=== PATIENT | female | born 1970 | race Caucasian/White ===

== ENCOUNTER 2019-05-31 10:55 | Emergency (ER) | payer OTHER ==
[2019-05-31 11:01] VITALS: BP 126/76; PULSE 89; TEMP 98.1; BMI 34.9
--- NOTE | 2019-05-31 11:36 | PDOC ---
History of Present Illness - General Chief Complaint: Pain Stated Complaint: PAIN Time Seen by Provider: 05/31/19 11:24 History Source: Patient Exam Limitations: Clinical Condition - History of Present Illness Initial Comments: 05/31/19 11:32 Patient with history of diabetes on metformin present with complaint of one month history of intermittent pain to dorsal aspect of right foot which has been persistent since yesterday with pain radiating to right calf muscle since yesterday. Patient reported taking Motrin for pain without improvement. Patient reported increased pain to right foot with ambulation. Denies numbness or tingling sensation. Denies injury or trauma to foot or leg. Denies any other symptoms Timing/Duration: other (1 month) Past History - Past Medical History Allergies/Adverse Reactions: Allergies Allergy/AdvReac Type Severity Reaction Status Date / Time No Known Allergies Allergy Verified 05/31/19 11:01 Home Medications: Ambulatory Orders Metformin HCl [Glucophage] 1,000 mg PO DAILY 05/31/19 Methocarbamol [Robaxin -] 500 mg PO BID #14 tablet 05/31/19 Naproxen 500 mg PO BID PRN #20 tablet 05/31/19 COPD: No - Suicide/Smoking/Psychosocial Hx Smoking History: Never smoked Information on smoking cessation initiated: No Hx Alcohol Use: No Drug/Substance Use Hx: No Review of Systems - Review of Systems Able to Perform ROS?: Yes Is the patient limited Green[place]ic proficient: No Constitutional: No: Malaise, Weakness HEENTM: No: Symptoms Reported Respiratory: No: Symptoms reported Cardiac (ROS): No: Symptoms Reported ABD/GI: No: Symptoms Reported Musculoskeletal: Yes: Symptoms Reported, See HPI, Joint Pain (right midfoot), Muscle Pain (right back knee and top of right foot). No: Muscle Weakness, Joint Stiffness Neurological: No: Numbness, Paresthesia, Tingling All Other Systems: Reviewed and Negative *Physical Exam - Vital Signs Last Vital Signs Temp Pulse Resp BP Pulse Ox 98.1 F 89 18 126/76 100 05/31/19 10:59 05/31/19 10:59 05/31/19 10:59 05/31/19 10:59 05/31/19 10:59 - Physical Exam Comments: 05/31/19 11:35 GENERAL: Well developed, well nourished. Awake and alert in moderate acute distress. CARDIOVASCULAR: Regular rate and rhythm. No murmurs, rubs, or gallops. PULMONARY: No evidence of respiratory distress. MUSCULOSKELETAL : Moderate tenderness to dorsal mode of right foot with mild tenderness to popliteal of right knee. No visible swelling or bony deformities . No increased warmth to leg or foot. EXTREMITIES: No cyanosis. No clubbing. No edema. No calf tenderness. SKIN: Warm and dry. Normal capillary refill. . NEUROLOGICAL: Alert, awake, appropriate. No motor deficits in the lower extremities. Gait is normal without ataxia. PSYCHIATRIC: Cooperative. Good eye contact. Appropriate mood and affect. General Appearance: Yes: Nourished ED Treatment Course - RADIOLOGY Radiology Studies Ordered: Category Date Time Status FOOT-RIGHT [RAD] Stat Radiology 05/31/19 11:27 Ordered DUPLEX VASCUL US-1 LEG [US] Stat Ultrasound 05/31/19 11:29 Ordered Medical Decision Making - Medical Decision Making 05/31/19 11:33 Patient with history of diabetes on metformin present with complaint of one month history of intermittent pain to dorsal aspect of right foot which has been persistent since yesterday with pain radiating to right calf muscle since yesterday. Patient reported taking Motrin for pain without improvement. Patient reported increased pain to right foot with ambulation. Denies numbness or tingling sensation. Denies injury or trauma to foot or leg. Denies any other symptoms Exam significant for moderate tenderness to dorsal aspect of right midfoot with mild tenderness to posterior popliteal fossa. No foot or calf swelling. No increased warmth to leg. Symptoms likely for sprain with strain of right calf muscle versus less likely DVT. X-ray of right foot ordered to rule out acute foot pathology. Duplex ultrasound of right lower extremity ordered to rule out DVT 05/31/19 12:03 right foot x-ray unremarkable. Pt pending duplex U/S 05/31/19 12:35 duplex U/S unremarkable.Patient symptoms likely muscle sprain with spasm. Patient will be discharged home on naproxen with robaxin for pain and spasm with podiatry follow-up *DC/Admit/Observation/Transfer Diagnosis at time of Disposition: Right foot pain, Right leg pain - Discharge Dispostion Disposition: HOME Condition at time of disposition: Stable Decision to Admit order: No - Prescriptions Prescriptions: Methocarbamol [Robaxin -] 500 mg PO BID #14 tablet Naproxen 500 mg PO BID PRN #20 tablet PRN Reason: pain - Referrals Referrals: Alex Renteria MD [Primary Care Provider] - - Patient Instructions Printed Discharge Instructions: DI for Foot Sprain Additional Instructions: Your foot x-ray was normal. Your leg ultrasound shows no blood clots. The symptoms likely from muscle spasm and strain. Take prescribed medication as needed for pain and spasm. Apply hot compresses to foot 2-3 times a day as needed for pain. Follow-up referred podiatry if no improvement in 3-4 days - Post Discharge Activity
[2019-05-31] MEDS ORDERED: KETOROLAC TROMETHAMINE 60 MG/2 ML VIAL IM ONE (12:40)
== END 2019-05-31 12:55 | disposition home or self-care (01) ==
LOC: JERFT 10:55
PROC: 3E0233Z Introduction of Anti-inflammatory into Muscle, Percutaneous Approach (ICD-10-PCS; principal; 2019-05-31)
DX: M62.838 Other muscle spasm (principal); E11.9 Type 2 diabetes mellitus without complications; Z79.84 Long term (current) use of oral hypoglycemic drugs
CPT/HCPCS: 73630-TC-RT-FY; 93971-TC; 99282-25